=== PATIENT | female | born 1990 | race Caucasian/White ===

== ENCOUNTER 2016-10-23 16:39 | Inpatient (IN) ==
[2016-10-23] MEDS ORDERED: ONDANSETRON 4 MG/2 ML VIAL IV PRN (17:19)
[2016-10-23] MEDS ORDERED: BUTORPHANOL 1 MG/ML VIAL IV PRN (17:19)
[2016-10-23] MEDS ORDERED: MEPERIDINE 50 MG/1 ML VIAL IM PRN (17:19)
[2016-10-23] MEDS ORDERED: LACTATED RINGERS 1,000 ML IV PRN (17:19)
[2016-10-23 17:44] LABS: Basophils % 0.1 % (0.0-0.8); Eosinophils # 0.1 10*3/uL (0.0-0.87); Eosinophils % 0.5 % (0.00-10.9); Hematocrit 34.1 VOL% (35.7-47.0); Hemoglobin 11.3 GM/DL (12.0-16.0); Immature Granulocytes % 0.6 %; Immature Granulocytes Absolute 0.06 #; Lymphocytes # 2.3 10*3/uL (1.4-4.0); Lymphocytes % 22.3 % (21.3-54.2); Mean Corpuscular HGB Conc 33.1 GM/DL (32-36); Mean Corpuscular Hemoglobin 32 PG (27-34); Mean Corpuscular Volume 97.7 FL (87-102); Mean Platelet Volume 10.7 FL (9.6-12.0); Monocytes # 0.6 10*3/uL (0.11-0.8); Neutrophils # 7.1 10*3/uL (1.4-7.4); Neutrophils % 70.5 % (38.7-73.9); Platelet Count 196 T/CUMM (130-400); Red Blood Count 3.49 MC/CUMM (3.8-5.5); Red Cell Distribution Width 14.3 % (9.3-17.3); White Blood Count 10.1 T/CUMM (4-12)
[2016-10-23 18:05] LABS: Alanine Aminotransferase 12 U/L (13-56); Albumin 2.5 G/DL (3.4-5.0); Alkaline Phosphatase 182 U/L (45-117); Aspartate Amino Transferase 10 U/L (0-37); Bilirubin,Total < 0.39 MG/DL (0.2-1.0); Blood Urea Nitrogen 6 MG/DL (7-18); Calcium 9.4 MG/DL (8.5-10.1); Glucose 77 MG/DL (74-106); Osmolality,Calculated 275.4 MOS/KG (273-304); Potassium 4.1 MMOL/L (3.5-5.1); Sodium 140 MMOL/L (136-145); Total Protein 6.1 G/DL (6.4-8.3)
[2016-10-23] MEDS: LACTATED RINGERS 1,000 ML IV SCH ×2 (18:14→22:10)
[2016-10-23] MEDS ORDERED: BUTORPHANOL 2 MG/ML VIAL IV PRN (21:01)
[2016-10-24] MEDS ORDERED: FAMOTIDINE 20 MG/2 ML VIAL IV ONE (02:22)
[2016-10-24] MEDS ORDERED: CITRIC ACID/SODIUM CITRATE 30 ML UDCUP PO ONE (02:22)
[2016-10-24] MEDS ORDERED: ePHEDrine 50 MG/ML AMP IV PRN (02:22)
[2016-10-24] MEDS ORDERED: fentaNYL 2 MCG/ROPIV 0.2% EPID 150 ML EPIDURAL SCH (02:23)
[2016-10-24] MEDS ORDERED: OXYTOCIN/LR 20 UNIT/1,000 ML BAG IV ONE ×2 (03:23→04:39)
[2016-10-24] MEDS ORDERED: miSOPROStol 200 MCG TABLET ONE (03:38)
[2016-10-24] MEDS ORDERED: METHYLERGONOVINE 0.2 MG/1 ML AMP ONE (03:38)
[2016-10-24 03:51] LABS: Apearance,Urine CLEAR (Clear); Bilirubin,Urine Negative (Negative); Blood, Urine Moderate mg/dL (Negative); Glucose,Urine (UA) Negative (Negative); Ketones,Urine Negative (Negative); Mucus,Urine Occasional /LPF (Occasional); Nitrite,Urine Negative (Negative); Protein,Urine Negative; RBC,Urine 2 /HPF (0-4); Squamous Epithelial Cell,Urine Occasional /HPF (0-10); Urine Color Yellow (Yellow); Urine Specific Gravity 1.012 (1.001-1.035); Urine Urobilinogen < 2.0 EU/DL (0.2-1.0); WBC,Urine 1 /HPF (0-6)
[2016-10-24] MEDS ORDERED: MEPERIDINE 50 MG/1 ML VIAL IV ONE (04:39)
[2016-10-24] MEDS: LACTATED RINGERS 1,000 ML IV SCH (04:50)
--- NOTE | 2016-10-24 04:53 | History & Physical Report ---
Assessment and Plan (1) Term Status: Acute Assessment and plan: PROM management Current Visit: Yes (2) Premature rupture of membranes Problem details: await onset of labor for 12 to 24 hours, induce afterward if undelivered Status: Acute Current Visit: Yes Qualifiers: PROM onset of labor timing: onset of labor within 24 hours of rupture PROM gestational age: full term Qualified Code(s): O42.02 - Full-term premature rupture of membranes, onset of labor within 24 hours of rupture History of Present Illness Chief complaint: premature rupture the membranes at 39 weeks History of present illness: Ms. Shore is a 26 year old female that has been receiving her care from Dr. Velazquez. This is her first and care has been uncomplicated. She has spontaneous rupture of membranes last evening and began having spontaneous contractions during the night. Home Medications Medication Instructions Recorded Confirmed Type Vit #108/Iron/FA 1 tablet PO DAILY 10/23/16 10/23/16 History [ One Tablet] Allergies Allergy/AdvReac Type Severity Reaction Status Date / Time No Known Allergies Allergy Verified 10/23/16 17:17 - Constitutional Constitutional: Present: as per HPI - EENT Eyes: Present: as per HPI Ears: Present: as per HPI Nose, mouth and throat: Present: as per HPI - Cardiovascular Cardiovascular: Present: as per HPI - Respiratory Respiratory: Present: as per HPI - Gastrointestinal Gastrointestinal: Present: as per HPI - Genitourinary Genitourinary: Present: as per HPI - Musculoskeletal Musculoskeletal: Present: as per HPI - Neurological Neurological: Present: as per HPI - Psychiatric Psychiatric: Present: as per HPI, anxiety - Endocrine Endocrine: Present: as per HPI - Hematologic/Lymphatic Hematologic/Lymphatic: Present: as per HPI Medical,Surgical,& Family Hx - Medical History Cardio: No history of: Aneurysm, Cardiac Dysrhythmia, Cerebrovascular Disease, Congenital Heart Disease, CHF, CAD, Hypertension, [place], Pacemaker, PVD, Valvular Heart Disease, Cardiovascular Problems Psychological: No history of: Anxiety Disorders, ADHD, Behavior Problems, Bipolar Disorder, Depression, Previous Suicide Attempt, Psychiatric/Substance Abuse Tx, Schizophrenia, Violent Behavior, Psychiatric Problems Neurology: No history of: Brain Aneurysm, Cerebral Hemorrhage, Cerebrovascular Accident , Cerebral Palsy, Dementia, Migraine, Multiple Sclerosis, Parkinson's Disease, Peripheral Neuropathy, Seizures, TIA, Vertigo, Neurologocal Cancer HEENT: No history of: Ear Problem, Eye Problem, Dental Problems, Glaucoma, Oral Cancer, HEENT Problems Endocrine: No history of: Adrenal Disease, Diabetes Mellitus (IDDM), Diabetes Mellitus ( NIDDM), Dyslipidemia, Thyroid Disorder, Endocrine Cancer, Endocrine Problems Rheumatology: No history of;: Fibromyalgia, Gout, Myasthenia Gravis, Psoriasis, Rheumatoid Arthritis, Sjogrens, Systemic Lupus Erythematosus, Rheumatological Problems Respiratory: No history of: Asthma, Bronchitis, COPD, Intubation, Obstructive Sleep Apnea , Pulmonary Embolism, Pulmonary Hypertension, Pneumonia, Lung Cancer, Respiratory Problems Renal: No history of: Renal (Kidney) Cancer, Dialysis, Renal Failure, Renal Problems Genitourinary: No history of: Bladder Problem, Kidney Stones, Recurring Urinary Tract Infections, Genitourinary Cancer, Problems Gastrointestinal: No history of: Bowel Obstruction, Clostridium Difficile, Crohn's Disease, Diverticulitis/ Diverticulosis, Esophageal Varices, GERD, Gastrointestinal Bleed , Hemorrhoids, Hematochezia, Hepatitis, Liver Problems, Pancreatitis, Polyps, Ulcerative Colitis, Gastrointestinal Cancer, GI Problems Musculoskeletal: No history of: Amputation, Back/Neck Problems, Degenerative Disk Disease, Herniated Disk, Osteoporosis, Musculoskeletal Cancer, Musculoskeletal Problems Hematology: No history of: Anemia, Blood Transfusion Reaction, Bleeding Problems, Clotting Problems, Sickle Cell Disease, Hematologic Cancer, Blood Disorders Reproductive: No history of: Breast Cancer, Endometriosis, Ectopic , Ovarian Cysts , Complication, Sexually Transmitted Disorders, Reproductive Cancer, Reproductive Problems Other: No history of: Anesthesia Reactions, Anaphylaxis, Cancer, Eczema, HIV, Malignant Hyperthermia, MRSA, Vancomycin-Resistant Enterococci, Skin Problems, Miscellaneous Medical Problems - Surgical History Cardiac Surgeries: Patient Denies: Femoral-Popliteal Bypass Graft, Cardiac Catheterization, Cardiac Surgery, Carotid Endarterectomy, Internal Defibrillator, Vascular Access Devices Thoracic Surgeries: Patient denies;: Kidney (Renal Surgery), Lithotripsy, Nephrectomy, Organ Transplant, Lobectomy Neurologic Surgeries: Patient denies: Brain Aneurysm, Cerebral Hemorrhage, Neurologic Surgery HEENT Surgeries: Patient denies: Carotid Endarterectomy, Eye Surgery, Thyroid Surgery, Tonsilectomy & Adenoidectomy Abdominal Surgeries: Patient denies: Abdominal Surgery, Appendectomy, Cholecystectomy, Colonoscopy , Gastric Bypass Surgery, EGD, Hernia Repair, Splenectomy Reproductive Surgeries: Patient denies;: Breast Surgery, Section, Cystoscopy, Dilation and Curettage, Genitourinary Surgery, Gynecologic Surgery, Hysterectomy, Tubal Ligation Orthopedic Surgeries: Patient denies;: Implanted Devices, Orthopedic Surgery, Spinal Surgery, Total Hip Replacement, Total Knee Replacement - Family History Family History: Denies;: Family Anesthesia Reaction, Family Cancer, Family Diabetes, Family Heart Disease, Family Hematology, Family Hypertension, Family Psychiatric Problems, Family Stroke, Additional Family History - Social History Smoking Status: Current every day smoker Frequency of Alcohol Use: None Type of Drug Use: None Exam - Constitutional Vitals: Period Temp Pulse Resp BP Sys/Schaefer Pulse Ox Last 24 Hr 97.6 F-98.3 F 64-81 16-18 119-134/67-86 General appearance: normal weight, no acute distress - Head Head exam: Present: normal inspection, normocephalic - ENT ENT exam: Present: normal exam - Neck Neck exam: Present: normal inspection - Respiratory Respiratory exam: Present: clear to auscultation bilaterally. Absent: accessory muscle use - Cardiovascular Cardiovascular exam: Present: regular rate and rhythm - GI/Abdominal GI/Abdominal exam: Present: soft. Absent: guarding, tenderness - Extremities Exam Extremities exam: Present: normal inspection - Back Exam Back exam: Present: normal inspection - Neurological Exam Neurological exam: Present: alert - Psychiatric Psychiatric exam: Present: normal affect - Skin Skin exam: Present: normal color Results - Labs CBC & BMP: 10/23/16 17:38 10/23/16 17:38 Quality Measures - VTE Contraindication to Pharmacological VTE Prophylaxis: Clinical assessment deems Pt at low risk, no prophalaxis needed
--- NOTE | 2016-10-24 05:01 | Operative Note ---
Date of procedure: 10/24/16 Pre-op diagnosis: at term with premature rupture of membranes Post-op diagnosis: other (spontaneous vaginal delivery, third degree obstetrical lacerations) Procedure: Spontaneous vaginal delivery, repair of third-degree perineal laceration and bilateral lower vaginal lacerations The patient was prepped and draped in the dorsal lithotomy position and pushing encouraged. Head delivered spontaneously perineal support but with an immediate tearing of the lower vagina and pelvic floor. Nuchal cord was present 2 and clamped and cut the loop over the baby's head. The anterior shoulder followed by the posterior and the remainder of the baby was delivered without difficulty. His pharynx was suctioned and the baby transferred to the warmer in satisfactory condition. Cord blood was obtained and the placenta allowed separate spontaneously. The placenta was delivered Altamirano-Jacobs maneuver and inspected and appeared grossly normal. The vagina was packed and the 2 lateral lacerations closed with running interlocking stitch of 2-0 Vicryl. The rectal sphincters were identified bilaterally clamped with Karen clamps and ligated the midline with 2-0 Vicryl suture. Fascia was closed around this [id number] times individual stitches of 3-0 Vicryl. Scipio stitch was placed with 3-0 Vicryl in several deep stitches placed in the perineal body, approximating the skin. Skin was closed with a running subcuticular stitch of 3-0 Vicryl. A final stitch was placed between the hymenal ring and the mucocutaneous junction. The pack was removed and no active bleeding from the uterus noted. Vaginal exam was performed with good sphincter tone. Patient was taken from the dorsolithotomy position and satisfactory condition. Surgeon / Physician: Mario Yen Estimated blood loss: other Specimens: none sent Condition: stable Disposition: floor Results - Labs CBC & BMP: 10/23/16 17:38 10/23/16 17:38 Discharge Plan - Discharge Medications No Action Vit #108/Iron/FA [ One Tablet] 1 tablet PO DAILY - Follow Up or Referral - Forms/Instructions
[2016-10-24] MEDS ORDERED: RHO(D) IMMUNE GLOBULIN 300 MCG SYRINGE IM ONE (05:10)
[2016-10-24] MEDS ORDERED: HYDROCORTISONE 2.5% RECTAL CREAM 30 GM TUBE TOP PRN (05:10)
[2016-10-24] MEDS ORDERED: MEASLES/MUMPS/RUBELLA VACCINE 0.5 ML VIAL SUBCUT ONE (05:10)
[2016-10-24] MEDS ORDERED: ACETAMINOPHEN 325 MG TABLET PO PRN (05:10)
[2016-10-24] MEDS ORDERED: WITCH HAZEL PADS 100/JAR TOP PRN (05:10)
[2016-10-24] MEDS ORDERED: BENZOCAINE 20%/MENTHOL 0.5% SPRAY 56 GM CAN TOP PRN (05:10)
[2016-10-24] MEDS ORDERED: BISACODYL 10 MG SUPP RECTAL PRN (05:10)
[2016-10-24] MEDS ORDERED: LANOLIN 50% CREAM 0.3 OZ TUBE TOP PRN (05:10)
[2016-10-24] MEDS ORDERED: DIPH/TET/ACEL PERT BOOSTER VACCINE 0.5 ML VIAL IM ONE (05:10)
[2016-10-24] MEDS: IBUPROFEN 800 MG TABLET PO PRN ×2 (08:06→14:00)
[2016-10-24] MEDS: DOCUSATE SODIUM 100 MG CAPSULE PO SCH ×2 (08:06→20:51)
[2016-10-24] MEDS: oxyCODONE/ACETAMINOPHEN 5-325 MG TABLET PO PRN ×2 (08:07→14:00)
[2016-10-25] MEDS: IBUPROFEN 800 MG TABLET PO PRN ×4 (00:10→20:38)
[2016-10-25 06:57] LABS: Basophils % 0.1 % (0.0-0.8); Eosinophils % 0.2 % (0.00-10.9); Hematocrit 27.5 VOL% (35.7-47.0); Immature Granulocytes % 0.6 %; Immature Granulocytes Absolute 0.09 #; Lymphocytes # 3.3 10*3/uL (1.4-4.0); Lymphocytes % 20.4 % (21.3-54.2); Mean Corpuscular HGB Conc 32.7 GM/DL (32-36); Mean Corpuscular Hemoglobin 33 PG (27-34); Mean Corpuscular Volume 99.6 FL (87-102); Mean Platelet Volume 10.5 FL (9.6-12.0); Monocytes % 6.3 % (1.7-12.7); Neutrophils # 11.8 10*3/uL (1.4-7.4); Neutrophils % 72.4 % (38.7-73.9); Platelet Count 202 T/CUMM (130-400); Red Cell Distribution Width 14.8 % (9.3-17.3)
[2016-10-25 07:08] LABS: Red Blood Count 2.76 MC/CUMM (3.8-5.5); White Blood Count 16.3 T/CUMM (4-12)
[2016-10-25] MEDS: DOCUSATE SODIUM 100 MG CAPSULE PO SCH ×2 (09:30→20:37)
--- NOTE | 2016-10-25 13:19 | OB/GYN Progress Note ---
Assessment and Plan (1) Premature rupture of membranes Problem details: await onset of labor for 12 to 24 hours, induce afterward if undelivered Status: Acute Assessment and plan: PPD#1 s/p SAVD . 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 her bleeding and pain are under control. 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 - Constitutional Vitals: Vital Signs Temp Pulse Resp BP Pulse Ox 10/25/16 11:25 97.7 F 110 H 20 118/79 98 10/25/16 07:40 98.5 F 118 H 20 142/81 97 10/25/16 06:00 16 10/25/16 04:00 97.1 F L 83 16 112/61 98 10/25/16 02:00 18 10/25/16 00:00 97.3 F L 99 H 20 110/56 98 10/24/16 15:30 97.8 F 84 20 115/70 98 General appearance: normal weight, no acute distress - Cardiovascular Cardiovascular exam: Absent: regular rate and rhythm - GI/Abdominal GI/Abdominal exam: Absent: guarding, tenderness, rebound - Extremities Exam Extremities exam: Absent: calf tenderness Results - Labs CBC & BMP: 10/25/16 06:42 10/23/16 17:38
[2016-10-25] MEDS: oxyCODONE/ACETAMINOPHEN 5-325 MG TABLET PO PRN ×2 (14:28→20:38)
[2016-10-26] MEDS: oxyCODONE/ACETAMINOPHEN 5-325 MG TABLET PO PRN ×2 (03:29→09:00)
[2016-10-26] MEDS: IBUPROFEN 800 MG TABLET PO PRN ×2 (03:29→09:00)
[2016-10-26 07:13] VITALS: BP 124/54
[2016-10-26] MEDS: DOCUSATE SODIUM 100 MG CAPSULE PO SCH (09:00)
--- NOTE | 2016-10-26 09:01 | Discharge Summary ---
Hospital Course - Hospital Course Hospital Course: The patient was admitted at 39+ weeks with spontaneous rupture membranes and progressed to completely dilated and delivered vaginally on October 23. The patient's hospital course was uncomplicated and she was discharged home on day #2 without any complaints Diagnosis - Discharge Diagnosis (1) Premature rupture of membranes Status: Acute Specialty Discharge - Follow Up or Referrals Follow up with: Jordana Valladares MD [Physician] - 12/07/16 10:00 am Discharge Plan - Discharge Data Disposition: Disch To Home/Self Care Condition at Discharge: Stable Discharge Diet: advance to your usual diet Hygiene: may shower Contact your physician if you experience:: fever over 101, Difficulty voiding, Redness or swelling, Nausea/Vomiting, Shortness of breath, Bleeding, pain uncontrolled by pain medications - Discharge Medications New oxyCODONE/ACETAMINOPHEN 5-325 [Percocet 5-325] 1 - 2 tablet PO Q6H PRN #20 tablet PRN Reason: Abdominal Pain No Action Vit #108/Iron/FA [ One Tablet] 1 tablet PO DAILY - Follow Up or Referral Follow Up: Jordana Valladares MD [Physician] - 12/07/16 10:00 am - Forms/Instructions Instructions: Oxycodone/Acetaminophen (By mouth), Perineal Care (DC) , Vaginal Delivery (DC), Bleeding (DC), Sitz Bath (DC) Exam - Constitutional Vitals: Period Temp Pulse Resp BP Sys/Schaefer Pulse Ox Last 24 Hr 97 F-98.4 F 95-110 18-20 106-124/54-80 96-99 General appearance: normal weight, no acute distress - Respiratory Respiratory exam: Absent: accessory muscle use - Cardiovascular Cardiovascular exam: Present: regular rate and rhythm - Extremities Exam Extremities exam: Absent: calf tenderness - Neurological Exam Neurological exam: Present: alert, oriented X3 - Psychiatric Psychiatric exam: Present: normal affect, normal mood - Skin Skin exam: Present: normal color DS: Provider Date of admission: 10/23/16 17:20 Primary care physician: . No PCP Attending physician on admission: Mario Yen DO Consults: 10/23/16 17:20 Consult to Anesthesiology [CONS] Routine Consulting Provider: Reason for Anesthesiology: Epidural Consult Comment: Epidural for pain managment 10/24/16 05:10 Consult to Vessel Operator [CONS] Routine Consult Vessel Operator: Breast Feeding Discharging clinician: Jordana Roy- Expected date of discharge: 10/26/16
== END 2016-10-26 13:10 | disposition home or self-care (01) | DRG 775 ==
LOC: N.LDOUT 16:39 → N.LD 16:41 → N.OB 10-24 05:47
PROVIDERS: ADMIT Obstetrics & Gynecology; ATTEND Obstetrics & Gynecology